=== PATIENT | female | born 1940 | race Caucasian/White ===

== ENCOUNTER → 2019-05-04 07:47 | Outpatient (CLI) | payer MEDICARE, OTHER, SELFPAY ==
--- NOTE | 2019-05-04 | DI.MRI.S_ITS ---
PROCEDURE: MR HAND RT WO/W CON INDICATIONS: OSTEOARTHRITIS RIGHT HAND TECHNIQUE: Coronal and axial T1 spin echo and T2 fast spin echo with fat saturation. Post-contrast coronal and axial T1 spin echo with fat saturation images through the right hand and wrist. COMPARISON: [facility], CR, XR HAND 3+ VIEWS BILATERAL, 04/19/2019, 11:54. FINDINGS: Image quality: Excellent. Bones and cartilage: There are joint space narrowing and subchondral sclerosis throughout right hand and wrist joints. Fluid signal areas are noted involving proximal lunate and triquetrum as well as adjacent ulnar styloid. 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 Similar area of signal abnormality is also noted involving the third metacarpal head, second through fourth metacarpal bases, second, third, fourth and fifth PIP and DIP joints suggestive of extensive erosion. The finding is more prominent in second and third PIP and DIP joints. Synovium: There is suggestion of mild synovial thickening and enhancement involving the second and fifth PIP joints and second and fourth DIP joints and is concerning for mild synovitis. No evidence of tenosynovitis is noted in flexor and extensor tendons. Soft tissues: Mild soft tissue swelling around second and third PIP and DIP joints are seen. IMPRESSION: 1. 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 Changes in second through fifth interphalangeal joints can also represent changes from erosive osteoarthritis. 2. Suggestion of mild synovitis in second and fifth PIP joints. No evidence of tenosynovitis of the tendons. No area of abnormal soft tissue enhancement. Dictated by: David Mitchell M.D. on 05/04/2019 at 11:05 Approved by: David Mitchell M.D. on 05/04/2019 at 11:12
--- NOTE | 2019-05-04 | DI.MRI.S_ITS ---
PROCEDURE: MR HAND LT WO/W CON INDICATIONS: OSTEOARTHRITIS LEFT HAND TECHNIQUE: Coronal and axial T1 spin echo and T2 fast spin echo with fat saturation. Post-contrast coronal and axial T1 spin echo with fat saturation images through the left hand hand and wrist. COMPARISON: [facility], CR, XR HAND 3+ VIEWS BILATERAL, 04/19/2019, 11:54. FINDINGS: Image quality: Excellent. Bones and cartilage: Moderate to severe joint space narrowing throughout interphalangeal joints and first MCP joint are seen. Subchondral sclerosis are also noted. There are T2 hyperintense signal involving central and periarticular portion of second through fifth proximal phalangeal heads concerning for early erosive changes. No definite erosion in the metacarpal heads are noted. Synovium: No abnormal synovial thickening or enhancement is noted on the study. No significant synovial fluid is seen in left hand joints. No evidence of tenosynovitis is seen in flexor and extensor tendons. Soft tissues: No area of abnormal soft tissue enhancement. Mild soft tissue swelling around second through fourth PIP and DIP joints are seen. IMPRESSION: 1. Erosive changes involving left second through fifth proximal phalangeal heads with moderate to severe joint space narrowing and subchondral sclerosis throughout interphalangeal joints. Finding may represent changes secondary to erosive osteoarthritis. Other type of inflammatory arthropathy cannot be entirely excluded. 2. No synovial enhancement or thickening is noted. No evidence of tenosynovitis. No area of abnormal soft tissue enhancement. Mild soft tissue swelling around the second through fourth PIP and DIP joints. Dictated by: David Mitchell M.D. on 05/04/2019 at 10:19 Approved by: David Mitchell M.D. on 05/04/2019 at 10:33
== END ==
PROVIDERS: Referring Provider Internal Medicine Rheumatology; Visit Provider Internal Medicine Rheumatology
DX: M19.042 Primary osteoarthritis, left hand (principal); M19.041 Primary osteoarthritis, right hand
CPT/HCPCS: 73220; A9579